=== PATIENT | female | born 1985 | race Caucasian/White ===

== ENCOUNTER 2016-12-22 07:27 | Emergency (ER) | payer OTHER ==
[2016-12-22] MEDS ORDERED: SODIUM CHLORIDE 0.9% 1,000 ML IV STA (07:35)
[2016-12-22] MEDS ORDERED: SODIUM CHLORIDE 0.9% 500 ML IV STA (07:35)
--- NOTE | 2016-12-22 07:42 | ED ---
Syncope HPI <Arturo Jeong - Last Filed: 12/22/16 09:09> - General Source: patient, RN notes reviewed Mode of arrival: EMS Limitations: no limitations - History of Present Illness MD Complaint: loss of consciousness, other <Javi Tracy - Last Filed: 12/22/16 10:37> - General Chief Complaint: Syncope Stated Complaint: Syncope Time Seen by Provider: 12/22/16 07:27 - History of Present Illness Initial Comments: This is a 31-year-old female with a benign past history states that she wasn't feeling well started around 3:00 this morning she found her partner on the bathroom floor or she's been sick throughout the night she felt woozy passed out hit the vanity with left-sided of her face and head sheet have a brief episode of loss of consciousness got up and then passed out again for brief period time. She was brought in by EMS. She did have a cervical collar on no backboard was used. She complains of left facial pain no neck pain no loss of function to her upper or lower extremities. She's never had anything like this before she denied any palpitations she herself had no nausea vomiting diarrhea shortness of breath or other symptoms prior to this. This is never happened before. She states her last menstrual periods a week ago and she denies . Her last tetanus shot was within the last 10 years. (Javi Tracy) - Related Data Previous Rx's Medication Instructions Recorded Ibuprofen [Motrin] 800 mg PO Q6HR PRN #20 tab 12/22/16 Allergies Allergy/AdvReac Type Severity Reaction Status Date / Time No Known Allergies Allergy Verified 12/22/16 07:52 Review of Systems ROS Other: All systems not noted in ROS Statement are negative. <Arturo Jeong - Last Filed: 12/22/16 09:09> ROS Other: All systems not noted in ROS Statement are negative. <Javi Tracy - Last Filed: 12/22/16 10:37> ROS Statement: Those systems with pertinent positive or pertinent negative responses have been documented in the HPI. Past Medical History Past Medical History: No Reported History History of Any Multi-Drug Resistant Organisms: None Reported Past Surgical History: No Surgical Hx Reported Past Psychological History: No Psychological Hx Reported Smoking Status: Never smoker Past Alcohol Use History: Occasional Past Drug Use History: None Reported <Javi Tracy - Last Filed: 12/22/16 10:37> General Exam <Arturo Jeong - Last Filed: 12/22/16 09:09> Limitations: no limitations General appearance: alert, in no apparent distress Head exam: Present: normocephalic, normal inspection, other (From abrasion and a very small laceration seen to the left temporal scalp at the forehead line. No step-off or crepitation no bleeding no formed by seen. It appears be approximately 3-4 mm in length) Eye exam: Present: normal appearance, PERRL, EOMI. Absent: scleral icterus, conjunctival injection, periorbital swelling ENT exam: Present: normal exam, mucous membranes moist Neck exam: Present: normal inspection. Absent: tenderness, meningismus, lymphadenopathy Respiratory exam: Present: normal lung sounds bilaterally. Absent: respiratory distress, wheezes, rales, rhonchi, stridor Cardiovascular Exam: Present: regular rate, normal rhythm, normal heart sounds. Absent: systolic murmur, diastolic murmur, rubs, gallop, clicks GI/Abdominal exam: Present: soft, normal bowel sounds. Absent: distended, tenderness, guarding, rebound, rigid Extremities exam: Present: normal inspection, full ROM, normal capillary refill. Absent: tenderness, pedal edema, joint swelling, calf tenderness Back exam: Present: normal inspection Neurological exam: Present: alert, oriented X3, CN II-XII intact Psychiatric exam: Present: normal affect, normal mood Skin exam: Present: warm, dry, normal color. Absent: rash <Javi Tracy - Last Filed: 12/22/16 10:37> - General Exam Comments Initial Comments: This is a well-developed well-nourished awake alert oriented 3 female she does demonstrate a Ideal Coma Scale of 15 (Javi Tracy) Course <Arturo Jeong - Last Filed: 12/22/16 09:09> <Javi Tracy - Last Filed: 12/22/16 10:37> Vital Signs 12/22/16 12/22/16 07:28 10:06 Temperature 98.5 F Pulse Rate 57 L 79 Respiratory 18 18 Rate Blood Pressure 122/81 128/78 O2 Sat by Pulse 97 98 Oximetry - Reevaluation(s) Reevaluation #1: 12/22/16 08:42 I did remove the patient's cervical collar and C-spine was cleared by CAT scan. Reexamination of the wound reveals approximately half centimeter long wound will require some repair. The question of carbon monoxide was raised as the other occupant of the swelling had nausea vomiting. This will be evaluated ( Javi Tracy) EKG Findings - EKG Results: EKG: interpreted by LESLIE HENDRIX, sinus rhythm, normal axis, normal QRS, normal ST/ T, no acute changes (Sinus rhythm rate of 62. Interval 164 QRS duration 84 daily since QTC of 420/426 this appears be a normal EKG) <Javi Tracy - Last Filed: 12/22/16 10:37> Procedures <Arturo Jeong - Last Filed: 12/22/16 09:09> <Javi Tracy - Last Filed: 12/22/16 10:37> - Procedures Initial comment: 1 cm linear laceration to the left side of the forehead. No active bleeding. The skin was anesthetized with 1% lidocaine. The laceration was then cleansed with Betadine and irrigated with normal saline. The wound was inspected, and there was no evidence of injury to deep structures. No foreign body was noted in the wound. A total of 2 skin sutures were placed utilizing 6-0 nylon. (Arturo Jeong) Medical Decision Making - Lab Data Result diagrams: 12/22/16 07:52 12/22/16 07:52 <Arturo Jeong - Last Filed: 12/22/16 09:09> - Lab Data Result diagrams: 12/22/16 07:52 12/22/16 07:52 - Radiology Data Radiology results: report reviewed (I did review the imaging studies and report no acute findings.), image reviewed <Javi Tracy - Last Filed: 12/22/16 10:37> - Medical Decision Making I did discuss the findings the patient family members the patient's lab work is essentially within normal limits except for the leukocytosis is likely reactive. CT is negative the repeat laceration repaired by my physician dental hygiene administrative assistant. Patient is a satisfactory condition for discharge she'll be discharged with instructions increase her oral fluids ice and Motrin for pain follow-up when necessary sutures out is indicated (Javi Tracy) - Lab Data Lab Results 12/22/16 12/22/16 12/22/16 Range/Units 07:52 07:52 07:52 WBC 20.0 H (3.8-10.6) k/uL RBC 4.89 (3.80-5.40) m/uL Hgb 15.4 (11.4-16.0) gm/dL Hct 45.2 (34.0-46.0) % MCV 92.3 (80.0-100.0) fL MCH 31.5 (25.0-35.0) pg MCHC 34.1 (31.0-37.0) g/dL RDW 12.4 (11.5-15.5) % Plt Count 289 (150-450) k/uL Neutrophils % 86 % Lymphocytes % 10 % Monocytes % 2 % Eosinophils % 1 % Basophils % 0 % Neutrophils # 17.1 H (1.3-7.7) k/uL Lymphocytes # 2.1 (1.0-4.8) k/uL Monocytes # 0.3 (0-1.0) k/uL Eosinophils # 0.3 (0-0.7) k/uL Basophils # 0.1 (0-0.2) k/uL PT (9.0-12.0) sec INR (<1.1) APTT (22.0-30.0) sec Carbon Monoxide, Quant (<10.0) % Sodium 141 (137-145) mmol/L Potassium 4.5 (3.5-5.1) mmol/L Chloride 107 (98-107) mmol/L Carbon Dioxide 22 (22-30) mmol/L Anion Gap 12 mmol/L BUN 19 H (7-17) mg/dL Creatinine 0.66 (0.52-1.04) mg/dL Est GFR (MDRD) Af Amer >60 (>60 ml/min/1.73 sqM) Est GFR (MDRD) Non-Af >60 (>60 ml/min/1.73 sqM) Glucose 103 H (74-99) mg/dL Calcium 9.3 (8.4-10.2) mg/dL Magnesium 1.9 (1.6-2.3) mg/dL Total Bilirubin 0.8 (0.2-1.3) mg/dL AST 22 (14-36) U/L ALT 27 (9-52) U/L Alkaline Phosphatase 89 (38-126) U/L Total Creatine Kinase 55 (30-135) U/L CK-MB (CK-2) 0.4 (0.0-2.4) ng/mL CK-MB (CK-2) Rel Index 0.7 Troponin I <0.012 (0.000-0.034) ng/mL Total Protein 7.1 (6.3-8.2) g/dL Albumin 4.3 (3.5-5.0) g/dL Urine Color Urine Appearance (Clear) Urine pH (5.0-8.0) Ur Specific [place] (1.001-1.035) Urine Protein (Negative) Urine Glucose (UA) (Negative) Urine Ketones (Negative) Urine Blood (Negative) Urine Nitrite (Negative) Urine Bilirubin (Negative) Urine Urobilinogen (<2.0) mg/dL Ur Leukocyte Esterase (Negative) Urine HCG, Qual (Not Detectd) 12/22/16 12/22/16 12/22/16 Range/Units 09:15 09:15 09:56 WBC (3.8-10.6) k/uL RBC (3.80-5.40) m/uL Hgb (11.4-16.0) gm/dL Hct (34.0-46.0) % MCV (80.0-100.0) fL MCH (25.0-35.0) pg MCHC (31.0-37.0) g/dL RDW (11.5-15.5) % Plt Count (150-450) k/uL Neutrophils % % Lymphocytes % % Monocytes % % Eosinophils % % Basophils % % Neutrophils # (1.3-7.7) k/uL Lymphocytes # (1.0-4.8) k/uL Monocytes # (0-1.0) k/uL Eosinophils # (0-0.7) k/uL Basophils # (0-0.2) k/uL PT 10.9 (9.0-12.0) sec INR 1.1 (<1.1) APTT 23.9 (22.0-30.0) sec Carbon Monoxide, Quant 1.2 (<10.0) % Sodium (137-145) mmol/L Potassium (3.5-5.1) mmol/L Chloride (98-107) mmol/L Carbon Dioxide (22-30) mmol/L Anion Gap mmol/L BUN (7-17) mg/dL Creatinine (0.52-1.04) mg/dL Est GFR (MDRD) Af Amer (>60 ml/min/1.73 sqM) Est GFR (MDRD) Non-Af (>60 ml/min/1.73 sqM) Glucose (74-99) mg/dL Calcium (8.4-10.2) mg/dL Magnesium (1.6-2.3) mg/dL Total Bilirubin (0.2-1.3) mg/dL AST (14-36) U/L ALT (9-52) U/L Alkaline Phosphatase (38-126) U/L Total Creatine Kinase (30-135) U/L CK-MB (CK-2) (0.0-2.4) ng/mL CK-MB (CK-2) Rel Index Troponin I (0.000-0.034) ng/mL Total Protein (6.3-8.2) g/dL Albumin (3.5-5.0) g/dL Urine Color Yellow Urine Appearance Clear (Clear) Urine pH 7.5 (5.0-8.0) Ur Specific [place] 1.017 (1.001-1.035) Urine Protein Negative (Negative) Urine Glucose (UA) Negative (Negative) Urine Ketones Negative (Negative) Urine Blood Negative (Negative) Urine Nitrite Negative (Negative) Urine Bilirubin Negative (Negative) Urine Urobilinogen <2.0 (<2.0) mg/dL Ur Leukocyte Esterase Negative (Negative) Urine HCG, Qual (Not Detectd) 12/22/16 Range/Units 09:56 WBC (3.8-10.6) k/uL RBC (3.80-5.40) m/uL Hgb (11.4-16.0) gm/dL Hct (34.0-46.0) % MCV (80.0-100.0) fL MCH (25.0-35.0) pg MCHC (31.0-37.0) g/dL RDW (11.5-15.5) % Plt Count (150-450) k/uL Neutrophils % % Lymphocytes % % Monocytes % % Eosinophils % % Basophils % % Neutrophils # (1.3-7.7) k/uL Lymphocytes # (1.0-4.8) k/uL Monocytes # (0-1.0) k/uL Eosinophils # (0-0.7) k/uL Basophils # (0-0.2) k/uL PT (9.0-12.0) sec INR (<1.1) APTT (22.0-30.0) sec Carbon Monoxide, Quant (<10.0) % Sodium (137-145) mmol/L Potassium (3.5-5.1) mmol/L Chloride (98-107) mmol/L Carbon Dioxide (22-30) mmol/L Anion Gap mmol/L BUN (7-17) mg/dL Creatinine (0.52-1.04) mg/dL Est GFR (MDRD) Af Amer (>60 ml/min/1.73 sqM) Est GFR (MDRD) Non-Af (>60 ml/min/1.73 sqM) Glucose (74-99) mg/dL Calcium (8.4-10.2) mg/dL Magnesium (1.6-2.3) mg/dL Total Bilirubin (0.2-1.3) mg/dL AST (14-36) U/L ALT (9-52) U/L Alkaline Phosphatase (38-126) U/L Total Creatine Kinase (30-135) U/L CK-MB (CK-2) (0.0-2.4) ng/mL CK-MB (CK-2) Rel Index Troponin I (0.000-0.034) ng/mL Total Protein (6.3-8.2) g/dL Albumin (3.5-5.0) g/dL Urine Color Urine Appearance (Clear) Urine pH (5.0-8.0) Ur Specific [place] (1.001-1.035) Urine Protein (Negative) Urine Glucose (UA) (Negative) Urine Ketones (Negative) Urine Blood (Negative) Urine Nitrite (Negative) Urine Bilirubin (Negative) Urine Urobilinogen (<2.0) mg/dL Ur Leukocyte Esterase (Negative) Urine HCG, Qual Not Detected (Not Detectd) Disposition <Arturo Jeong - Last Filed: 12/22/16 09:09> <Javi Tracy - Last Filed: 12/22/16 10:37> Clinical Impression: Vasovagal syncope, Dehydration, Scalp laceration, Concussion, Leukocytosis Disposition: HOME SELF-CARE Condition: Good Instructions: Concussion (ED), Laceration (ED), Syncope (ED), Dehydration (ED) Prescriptions: Ibuprofen [Motrin] 800 mg PO Q6HR PRN #20 tab PRN Reason: Pain
[2016-12-22 08:07] LABS: Basophils # (A) 0.1 k/uL (0-0.2); Basophils % (A) 0 %; CH 31.5; CHCM 34.2; Eosinophils # (A) 0.3 k/uL (0-0.7); Eosinophils % (A) 1 %; HCT 45.2 % (34.0-46.0); HGB 15.4 gm/dL (11.4-16.0); Luc # (Auto) 0.15; Luc % (Auto) 1; Lymphocytes # (A) 2.1 k/uL (1.0-4.8); Lymphocytes % (A) 10 %; MCH 31.5 pg (25.0-35.0); MCHC 34.1 g/dL (31.0-37.0); MCV 92.3 fL (80.0-100.0); Mean Platelet Volume 7.3; Monocytes # (A) 0.3 k/uL (0-1.0); Monocytes % (A) 2 %; Neutrophils # (A) 17.1 k/uL (1.3-7.7); Neutrophils % (A) 86 %; RBC 4.89 m/uL (3.80-5.40); RDW 12.4 % (11.5-15.5)
[2016-12-22 08:16] LABS: ALT 27 U/L (9-52); AST 22 U/L (14-36); Alkaline Phosphatase 89 U/L (38-126); Anion Gap 12 mmol/L; Blood Urea Nitrogen 19 mg/dL (7-17); Calcium 9.3 mg/dL (8.4-10.2); Carbon Dioxide 22 mmol/L (22-30); Chloride 107 mmol/L (98-107); Glucose 103 mg/dL (74-99); Magnesium 1.9 mg/dL (1.6-2.3); Non-African American GFR(MDRD) >60 (>60 ml/min/1.73 sqM); Potassium 4.5 mmol/L (3.5-5.1); Sodium 141 mmol/L (137-145); Total Bilirubin 0.8 mg/dL (0.2-1.3); Total Protein 7.1 g/dL (6.3-8.2)
--- NOTE | 2016-12-22 08:28 | CT ---
EXAMINATION TYPE: CT brain ildefonsoine wo con DATE OF EXAM: 12/22/2016 8:18 AM COMPARISON: NONE HISTORY: Syncope CT DLP: 1453.8 mGycm, Automated exposure control for dose reduction was used. CONTRAST: None CT of the brain is performed utilizing 3 mm thick sections through the posterior fossa and 3 mm thick sections through the remaining calvarium. Study is performed within 24 hours of arrival to the hospital. No abnormal hyperdensity is present to suggest an acute intracranial hemorrhage. No mass lesion is evident. No acute infarcts are evident. Ventricles and sulci are appropriate for the patient age. Paranasal sinuses and mastoid air cells within the [id number] are clear. IMPRESSIONS: 1. Normal CT brain. CT cervical spine. COMPARISON: None CT of the cervical spine is performed in the axial plane at 2 mm thick sections. Reconstructed image s in the coronal, and sagittal plane are reviewed on the computer. No acute fractures are evident. Vertebral body alignment is normal. Disc heights are preserved. Vertebral body heights are preserved. No spinal canal stenosis is evident. No neural foraminal stenosis is evident. IMPRESSIONS: 1. Normal CT cervical spine.
[2016-12-22 08:36] LABS: Creatine Kinase 55 U/L (30-135)
[2016-12-22] MEDS ORDERED: IBUPROFEN 800 MG TAB PO STA (08:41)
[2016-12-22 08:48] LABS: Creatine Kinase MB 0.4 ng/mL (0.0-2.4); Troponin I <0.012 ng/mL (0.000-0.034)
--- NOTE | 2016-12-22 09:51 | XR ---
EXAMINATION TYPE: XR chest 2V DATE OF EXAM: 12/22/2016 9:48 AM COMPARISON: NONE TECHNIQUE: PA and lateral views submitted. HISTORY: Syncope FINDINGS: The lungs are clear and there is no pneumothorax, pleural effusion, or focal pneumonia. IMPRESSION: 1. No acute process.
[2016-12-22 09:52] LABS: INR 1.1 (<1.1); Partial Thromboplastin Time 23.9 sec (22.0-30.0); Prothrombin Time 10.9 sec (9.0-12.0)
[2016-12-22 10:14] LABS: Appearance,Urine Clear (Clear); Bilirubin,Urine Negative (Negative); Glucose,Urine (UA) Negative (Negative); Ketones,Urine Negative (Negative); Leukocyte Esterase,Urine Negative (Negative); Nitrite,Urine Negative (Negative); PH, Urine 7.5 (5.0-8.0); Protein,Urine Negative (Negative); Specific Gravity,Urine 1.017 (1.001-1.035); UA Billing (MACRO vs. MICRO) CHEM; Urobilinogen,Urine <2.0 mg/dL (<2.0)
[2016-12-22 10:57] VITALS: BP 114/60; PULSE 66; RESP 16; TEMP 98
== END 2016-12-22 10:56 | disposition home or self-care (01) ==
LOC: EC 07:27
DX: S06.0X1A Concussion with loss of consciousness of 30 minutes or less, initial encounter (principal); S01.81XA Laceration without foreign body of other part of head, initial encounter; R55 Syncope and collapse; E86.0 Dehydration; D72.829 Elevated white blood cell count, unspecified; X58.XXXA Exposure to other specified factors, initial encounter; Y92.091 Bathroom in other non-institutional residence as the place of occurrence of the external cause
CPT/HCPCS: 12011; 36415; 70450; 71020; 72125; 80053; 81003; 81025; 82375; 82550; 82553; 83735; 84484; 85025; 85610; 85730; 93005; 99285

== ENCOUNTER → 2016-12-27 | Outpatient (CLI) | payer OTHER | END | disposition home or self-care (01) | LOC: RADECHMAIN 12:55 | PROVIDERS: ATTEND Family Medicine | DX: I47.1 Supraventricular tachycardia (principal) | CPT/HCPCS: 93225; 93226 ==

== ENCOUNTER 2017-08-30 06:39 | Emergency (ER) | payer OTHER ==
[2017-08-30] MEDS ORDERED: SODIUM CHLORIDE 0.9% 1,000 ML IV STA (07:21)
[2017-08-30] MEDS ORDERED: KETOROLAC 30 MG/ML 1 ML VIAL IVP STA (07:23)
--- NOTE | 2017-08-30 07:40 | ED ---
General Adult HPI - General Chief complaint: Dizziness Stated complaint: dizziness Time Seen by Provider: 08/30/17 07:03 Source: patient, RN notes reviewed Mode of arrival: ambulatory Limitations: no limitations - History of Present Illness Initial comments: 32-year-old female with no significant past medical history presents for evaluation of lightheadedness. Patient states that she woke this morning, felt very lightheaded like she's got pass out, sat down and symptoms resolved. She then went in the shower and began to feel somewhat again. She is also had a headache. Denies thunderclap or sudden onset headache. Frontal in nature, typical of her normal headaches. She also complains of a cough for the past 3 weeks. 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 Denies chest pain. Denies shortness of breath. Denies abdominal pain nausea vomiting. Denies dysuria. Patient denies monie fever but states she's had chills. - Related Data Home Medications Medication Instructions Recorded Confirmed Citalopram Hydrobromide [CeleXA] 20 mg PO DAILY 08/30/17 08/30/17 Allergies Allergy/AdvReac Type Severity Reaction Status Date / Time No Known Allergies Allergy Verified 08/30/17 08:55 Review of Systems ROS Statement: Those systems with pertinent positive or pertinent negative responses have been documented in the HPI. ROS Other: All systems not noted in ROS Statement are negative. Past Medical History Past Medical History: No Reported History History of Any Multi-Drug Resistant Organisms: None Reported Past Surgical History: No Surgical Hx Reported Past Psychological History: Depression Smoking Status: Never smoker Past Alcohol Use History: Occasional Past Drug Use History: None Reported General Exam Limitations: no limitations General appearance: alert, in no apparent distress Head exam: Present: atraumatic, normocephalic Eye exam: Present: normal appearance, PERRL ENT exam: Present: normal exam, normal oropharynx, mucous membranes moist Neck exam: Present: normal inspection, full ROM. Absent: tenderness, meningismus Respiratory exam: Present: normal lung sounds bilaterally. Absent: respiratory distress, wheezes Cardiovascular Exam: Present: regular rate, normal rhythm GI/Abdominal exam: Present: soft. Absent: distended, tenderness Extremities exam: Present: normal inspection, normal capillary refill. Absent: pedal edema Neurological exam: Present: alert, oriented X3, CN II-XII intact. Absent: motor sensory deficit Psychiatric exam: Present: normal affect, normal mood Skin exam: Present: warm, dry, intact. Absent: cyanosis, diaphoretic, erythema Course Vital Signs 08/30/17 08/30/17 06:55 08:54 Temperature 98.9 F Pulse Rate 59 L 75 Respiratory 18 16 Rate Blood Pressure 122/61 126/57 O2 Sat by Pulse 96 98 Oximetry - Reevaluation(s) Reevaluation #1: 08/30/17 09:16 I reevaluation, vital signs remained stable, patient feels better. EKG Findings - EKG Comments: EKG Findings:: EKG shows normal sinus rhythm, ventricular rate 60, NV 166, castration 82, QTC 422, no signs of arrhythmia or ischemia Medical Decision Making - Medical Decision Making 32-year-old female presenting for evaluation of lightheadedness, chills, and persistent cough. Patient is well-appearing on exam, vital signs are stable. EKG shows no signs of arrhythmia or ischemia. Workup including CBC is remarkable for elevated white blood cell count at 20.8 which is predominantly neutrophils. Patient is informed of this, she had an elevated white blood cell count on previous ER visit 8 months prior. These are the only 2 values available for comparison. She is informed of this abnormal lab and will follow- up with her primary care physician regarding leukocytosis. Otherwise CBC is unremarkable. Lites within normal limits, lactic acid 1.4 which is normal, urinalysis is negative for infection, influenza is negative. Chest x-ray shows no focal pneumonia or acute findings. Patient will follow-up with her primary care physician, return to the emergency department with worsening symptoms. Regarding patient's headache, she is encouraged to inform her primary care physician of this headache and may require neurology evaluation at some point if headache persists. Symptoms likely related to viral syndrome. - Lab Data Result diagrams: 08/30/17 08:14 08/30/17 08:14 Lab Results 08/30/17 08/30/17 08/30/17 Range/Units 08:14 08:14 08:14 WBC 20.8 H (3.8-10.6) k/uL RBC 4.61 (3.80-5.40) m/uL Hgb 14.5 (11.4-16.0) gm/dL Hct 42.3 (34.0-46.0) % MCV 91.7 (80.0-100.0) fL MCH 31.3 (25.0-35.0) pg MCHC 34.2 (31.0-37.0) g/dL RDW 11.8 (11.5-15.5) % Plt Count 236 (150-450) k/uL Neutrophils % 92 % Lymphocytes % 4 % Monocytes % 2 % Eosinophils % 1 % Basophils % 0 % Neutrophils # 19.1 H (1.3-7.7) k/uL Lymphocytes # 0.9 L (1.0-4.8) k/uL Monocytes # 0.4 (0-1.0) k/uL Eosinophils # 0.3 (0-0.7) k/uL Basophils # 0.0 (0-0.2) k/uL Sodium 137 (137-145) mmol/L Potassium 4.3 (3.5-5.1) mmol/L Chloride 106 (98-107) mmol/L Carbon Dioxide 24 (22-30) mmol/L Anion Gap 7 mmol/L BUN 12 (7-17) mg/dL Creatinine 0.65 (0.52-1.04) mg/dL Est GFR (MDRD) Af Amer >60 (>60 ml/min/1.73 sqM) Est GFR (MDRD) Non-Af >60 (>60 ml/min/1.73 sqM) Glucose 89 (74-99) mg/dL Plasma Lactic Acid Josr 1.4 (0.7-2.0) mmol/L Calcium 9.2 (8.4-10.2) mg/dL Total Bilirubin 0.6 (0.2-1.3) mg/dL AST 23 (14-36) U/L ALT 30 (9-52) U/L Alkaline Phosphatase 88 (38-126) U/L Total Protein 6.7 (6.3-8.2) g/dL Albumin 3.9 (3.5-5.0) g/dL Urine Color Urine Appearance (Clear) Urine pH (5.0-8.0) Ur Specific [place] (1.001-1.035) Urine Protein (Negative) Urine Glucose (UA) (Negative) Urine Ketones (Negative) Urine Blood (Negative) Urine Nitrite (Negative) Urine Bilirubin (Negative) Urine Urobilinogen (<2.0) mg/dL Ur Leukocyte Esterase (Negative) Urine HCG, Qual (Not Detectd) Influenza Type A RNA (Not Detectd) Influenza Type B (PCR) (Not Detectd) 08/30/17 08/30/17 08/30/17 Range/Units 08:14 08:52 08:52 WBC (3.8-10.6) k/uL RBC (3.80-5.40) m/uL Hgb (11.4-16.0) gm/dL Hct (34.0-46.0) % MCV (80.0-100.0) fL MCH (25.0-35.0) pg MCHC (31.0-37.0) g/dL RDW (11.5-15.5) % Plt Count (150-450) k/uL Neutrophils % % Lymphocytes % % Monocytes % % Eosinophils % % Basophils % % Neutrophils # (1.3-7.7) k/uL Lymphocytes # (1.0-4.8) k/uL Monocytes # (0-1.0) k/uL Eosinophils # (0-0.7) k/uL Basophils # (0-0.2) k/uL Sodium (137-145) mmol/L Potassium (3.5-5.1) mmol/L Chloride (98-107) mmol/L Carbon Dioxide (22-30) mmol/L Anion Gap mmol/L BUN (7-17) mg/dL Creatinine (0.52-1.04) mg/dL Est GFR (MDRD) Af Amer (>60 ml/min/1.73 sqM) Est GFR (MDRD) Non-Af (>60 ml/min/1.73 sqM) Glucose (74-99) mg/dL Plasma Lactic Acid [place] (0.7-2.0) mmol/L Calcium (8.4-10.2) mg/dL Total Bilirubin (0.2-1.3) mg/dL AST (14-36) U/L ALT (9-52) U/L Alkaline Phosphatase (38-126) U/L Total Protein (6.3-8.2) g/dL Albumin (3.5-5.0) g/dL Urine Color Yellow Urine Appearance Clear (Clear) Urine pH 7.0 (5.0-8.0) Ur Specific [place] 1.011 (1.001-1.035) Urine Protein Negative (Negative) Urine Glucose (UA) Negative (Negative) Urine Ketones Negative (Negative) Urine Blood Negative (Negative) Urine Nitrite Negative (Negative) Urine Bilirubin Negative (Negative) Urine Urobilinogen <2.0 (<2.0) mg/dL Ur Leukocyte Esterase Negative (Negative) Urine HCG, Qual Not Detected (Not Detectd) Influenza Type A RNA Not Detected (Not Detectd) Influenza Type B (PCR) Not Detected (Not Detectd) Disposition Clinical Impression: Viral syndrome, Dehydration Disposition: HOME SELF-CARE Condition: Good Instructions: Viral Syndrome (ED), Leukocytosis (ED), Dehydration (ED) Referrals: Medhat Nettles III, MD [Primary Care Provider] - 1-2 days Time of Disposition: 09:20
--- NOTE | 2017-08-30 08:10 | XR ---
EXAMINATION TYPE: XR chest 2V DATE OF EXAM: 08/30/2017 COMPARISON: Chest x-ray December 22, 2016 HISTORY: Syncope and weakness TECHNIQUE: Frontal and lateral views of the chest are obtained. FINDINGS: Somewhat low lung volumes are present. There is no focal air space opacity, pleural effusio n, or pneumothorax seen. The cardiac silhouette size is within normal limits. The osseous structur es are intact. IMPRESSION: No acute cardiopulmonary process. No significant change from prior.
[2017-08-30 08:36] LABS: Basophils % (A) 0 %; CH 32.1; CHCM 35.1; Eosinophils # (A) 0.3 k/uL (0-0.7); Eosinophils % (A) 1 %; HCT 42.3 % (34.0-46.0); HDW 2.37; HGB 14.5 gm/dL (11.4-16.0); Luc # (Auto) 0.07; Luc % (Auto) 0; Lymphocytes # (A) 0.9 k/uL (1.0-4.8); Lymphocytes % (A) 4 %; MCH 31.3 pg (25.0-35.0); MCHC 34.2 g/dL (31.0-37.0); MCV 91.7 fL (80.0-100.0); Mean Platelet Volume 7.2; Monocytes # (A) 0.4 k/uL (0-1.0); Monocytes % (A) 2 %; Neutrophils # (A) 19.1 k/uL (1.3-7.7); Neutrophils % (A) 92 %; RBC 4.61 m/uL (3.80-5.40); RDW 11.8 % (11.5-15.5); WBC 20.8 k/uL (3.8-10.6); WBC (Perox) 20.36
[2017-08-30 08:43] LABS: ALT 30 U/L (9-52); AST 23 U/L (14-36); Alkaline Phosphatase 88 U/L (38-126); Anion Gap 7 mmol/L; Blood Urea Nitrogen 12 mg/dL (7-17); Calcium 9.2 mg/dL (8.4-10.2); Carbon Dioxide 24 mmol/L (22-30); Chloride 106 mmol/L (98-107); Glucose 89 mg/dL (74-99); Non-African American GFR(MDRD) >60 (>60 ml/min/1.73 sqM); Potassium 4.3 mmol/L (3.5-5.1); Sodium 137 mmol/L (137-145); Total Bilirubin 0.6 mg/dL (0.2-1.3); Total Protein 6.7 g/dL (6.3-8.2)
[2017-08-30 08:55] VITALS: BP 126/57; PULSE 75; RESP 16
[2017-08-30 09:00] LABS: Appearance,Urine Clear (Clear); Bilirubin,Urine Negative (Negative); Glucose,Urine (UA) Negative (Negative); Ketones,Urine Negative (Negative); Leukocyte Esterase,Urine Negative (Negative); Nitrite,Urine Negative (Negative); Protein,Urine Negative (Negative); Specific Gravity,Urine 1.011 (1.001-1.035); UA Billing (MACRO vs. MICRO) CHEM; Urobilinogen,Urine <2.0 mg/dL (<2.0)
[2017-08-30 09:35] VITALS: TEMP 99
== END 2017-08-30 09:35 | disposition home or self-care (01) ==
LOC: EC 06:39
DX: E86.0 Dehydration (principal); B34.9 Viral infection, unspecified; F32.9 Major depressive disorder, single episode, unspecified; Z79.899 Other long term (current) drug therapy
CPT/HCPCS: 99284; 96374; 36415; 93005; 80053; 83605; 85025; 81003; 81025; 87502; 71020; J1885

== ENCOUNTER → 2017-09-22 | Outpatient (CLI) | payer OTHER ==
[2017-09-23 07:06] LABS: Angiotensin-1 Converting Enz. 44 U/L (8-52)
[2017-09-25 16:59] LABS: Estrogens Total 207 pg/mL
== END | disposition home or self-care (01) ==
LOC: LABWHC1 10:40
PROVIDERS: ATTEND Internal Medicine Infectious Disease
DX: L30.9 Dermatitis, unspecified (principal)
CPT/HCPCS: 36415; 82164; 82672; 84403; 84443; 85652; 86038; 86780

== ENCOUNTER 2017-11-17 13:37 | Emergency (ER) | payer SELFPAY ==
[2017-11-17 13:51] VITALS: BP 135/93; PULSE 76; RESP 18; TEMP 97.6
--- NOTE | 2017-11-17 14:15 | ED ---
General Adult HPI - General Chief complaint: Upper Respiratory Infection Stated complaint: Cough Time Seen by Provider: 11/17/17 13:47 Source: patient, RN notes reviewed Mode of arrival: ambulatory Limitations: no limitations - History of Present Illness Initial comments: 32-year-old female presents for cough and wheezing. She states she's been sick for the last few days. She does not smoke denies any history of asthma. She denies any nausea or vomiting. Family members have been diagnosed with influenza A. 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 She denies any other symptoms at this time.Patient denies any recent fever, chills, chest pain, back pain, abdominal pain, nausea vomiting, numbness or tingling, dysuria or hematuria, constipation or diarrhea, headaches or visual changes, or any other current symptoms. - Related Data Home Medications Medication Instructions Recorded Confirmed Citalopram Hydrobromide [CeleXA] 20 mg PO DAILY 08/30/17 08/30/17 Previous Rx's Medication Instructions Recorded Albuterol Inhaler [Ventolin Hfa 1 - 2 puff INHALATION Q4-6H PRN #1 11/17/17 Inhaler] inhaler predniSONE 50 mg PO DAILY #5 tab 11/17/17 Allergies Allergy/AdvReac Type Severity Reaction Status Date / Time No Known Allergies Allergy Verified 11/17/17 13:49 Review of Systems ROS Statement: Those systems with pertinent positive or pertinent negative responses have been documented in the HPI. ROS Other: All systems not noted in ROS Statement are negative. Past Medical History Past Medical History: No Reported History History of Any Multi-Drug Resistant Organisms: None Reported Past Surgical History: No Surgical Hx Reported Past Psychological History: Depression Smoking Status: Never smoker Past Alcohol Use History: Occasional Past Drug Use History: None Reported General Exam - General Exam Comments Initial Comments: General exam: Alert, active, comfortable in no apparent distress Head: Normocephalic Eyes: Normal reaction of pupils, equal size, normal range of extraocular motion Ears: normal external ear canals, pink tympanic membranes with normal cone of light Nose: clear with pink turbinates Throat: no erythema or exudates with normal sized tonsils Neck: no masses, no nuchal rigidity Chest: no chest wall deformity Lungs: equal air entry with no crackles or wheeze CVS: S1 and S2 normal with no audible mumurs, regular rhythm Abdomen: no hepatosplenomegaly, normal bowel sounds, no guarding or rigidity Spine: no scoliosis or deformity Skin: no rashes Neurological: No focal deficits, tone is normal in all 4 extremities Limitations: no limitations Course Vital Signs 11/17/17 13:49 Temperature 97.6 F Pulse Rate 76 Respiratory 18 Rate Blood Pressure 135/93 O2 Sat by Pulse 96 Oximetry Medical Decision Making - Medical Decision Making 32-year-old female presents with chief complaint of cough. At this time patient x-rays negative for acute pneumonia and patient negative for influenza. This time we discussed likely acute bronchitis. We will start her on an inhaler and steroids for home. We discussed follow-up return parameters all questions. Patient family stated they understood this plan. They will be discharged. - Radiology Data Radiology results: report reviewed, image reviewed Disposition Clinical Impression: Acute bronchitis Disposition: HOME SELF-CARE Condition: Stable Instructions: Acute Bronchitis (ED) Additional Instructions: Please use medication as discussed. Please follow up with family doctor if symptoms have not improved over the next two days. Please return to the emergency room if your symptoms increase or worsen or for any other concerns. Prescriptions: Albuterol Inhaler [Ventolin Hfa Inhaler] 1 - 2 puff INHALATION Q4-6H PRN #1 inhaler PRN Reason: Cough predniSONE 50 mg PO DAILY #5 tab Referrals: Medhat Nettles III, MD [Primary Care Provider] - 1-2 days Time of Disposition: 15:27
--- NOTE | 2017-11-17 14:39 | XR ---
EXAMINATION TYPE: XR chest 2V DATE OF EXAM: 11/17/2017 COMPARISON: Prior chest 08/30/2017 HISTORY: Cough TECHNIQUE: Frontal and lateral views of the chest are obtained. FINDINGS: There is no focal air space opacity, pleural effusion, or pneumothorax seen. The cardiac silhouette size is within normal limits. There is a spinal curvature. Bronchial wall thickening is n oted. The osseous structures are intact. IMPRESSION: Correlate for bronchitis, reactive airways disease, follow-up as indicated.
== END 2017-11-17 15:36 | disposition home or self-care (01) ==
LOC: EC 13:37
DX: J20.9 Acute bronchitis, unspecified (principal); F32.9 Major depressive disorder, single episode, unspecified; Z79.899 Other long term (current) drug therapy
CPT/HCPCS: 71046; 87502; 99283

== ENCOUNTER → 2017-12-27 | Outpatient (CLI) | payer BC ==
--- NOTE | 2017-12-27 14:41 | XR ---
Left wrist HISTORY: Pain 3 views of the left wrist Bone mineralization, joint spaces and alignment are maintained. No fracture or dislocation. IMPRESSION: No significant abnormalities evident, wrist MRI may be of benefit
--- NOTE | 2017-12-27 16:05 | US ---
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 GLAND SIZE: Right Lobe: 4.3 x 1.3 x1.7 cm Overall Parenchyma: heterogenous Left Lobe: 4.0 x 1.0 x 1.2 cm Overall Parenchyma: heterogeneous Isthmus Thickness: 0.3 cm NODULES RIGHT: # of nodules measured on right: 0 LEFT: # of nodules measured on left: 0 ISTHMUS: # of nodules measured in the isthmus: 2 1. 0.4 X 0.2 x 0.4 cm hypoechoic solid nodule at the mid right pole with well-defined margins; . Th is nodule is wider than tall and shows no intranodular vascularity. Prior size: 0.5 x 0.4 cm 2. 0.3 X 0.2 x 0.3 cm hypoechoic solid nodule at the mid left pole with well-defined margins; . Th is nodule is wider than tall and shows no intranodular vascularity. Prior size: 0.4 x 0.5 cm Bilateral neck scanned, no evidence of lymphadenopathy. IMPRESSION: 1. Stable Subcentimeter nodules within the isthmus of the thyroid
== END | disposition home or self-care (01) ==
LOC: RADUSWWP 13:37
PROVIDERS: ATTEND Family Medicine
DX: E04.2 Nontoxic multinodular goiter (principal); M25.532 Pain in left wrist
CPT/HCPCS: 76536

== ENCOUNTER → 2019-01-25 | Outpatient (CLI) | payer BC ==
--- NOTE | 2019-01-25 14:21 | US ---
EXAMINATION TYPE: US thyroid st tissue head/neck DATE OF EXAM: 01/25/2019 COMPARISON: NONE CLINICAL HISTORY: E04.9 Nontoxic goiter. follow up exam GLAND SIZE: Right Lobe: 4.3 x 1.3 x 1.6 cm Overall Parenchyma: homogenous Left Lobe: 4.7 x 1.3 x 1.1 cm Overall Parenchyma: homogeneous Isthmus Thickness: 0.3 cm NODULES RIGHT: # of nodules measured on right: 0 LEFT: # of nodules measured on left: 0 ISTHMUS: # of nodules measured in the isthmus: 2 1. 0.5 X 0.6 x 0.3 cm hypoechoic cystic nodule at midline isthmus with well defined margins. This nodule is wider than tall and shows intranodular vascularity. Prior size: 0.4 x 0.2 x 0.4 cm 2. 0.3 X 0.3 x 0.4 cm hypoechoic cystic nodule at midline isthmus with well defined margins. This nodule is wider than tall and shows intranodular vascularity. Prior size: 0.3 x 0.2 x 0.3 cm Bilateral neck scanned, no evidence of lymphadenopathy. IMPRESSION: Essentially stable exam
== END ==
LOC: RADUSWWP 12:16
PROVIDERS: ATTEND Family Medicine
DX: E04.9 Nontoxic goiter, unspecified (principal)
CPT/HCPCS: 76536

== ENCOUNTER → 2024-11-19 | Outpatient (CLI) | payer BC ==
--- NOTE | 2024-11-19 21:00 | MR ---
EXAMINATION TYPE: MR cervical spine wo con DATE OF EXAM: 11/19/2024 8:54 PM COMPARISON: None. CLINICAL INDICATION: Female, 39 years old with history of M54.12; PHH, Weakness/Tingling in Arms, mor e on Left side x6 months, Headaches TECHNIQUE: Multi planar, multi sequence imaging was performed utilizing: T1-weighted, T2-weighted, an d turbo inversion recovery imaging of the cervical spine. IV Contrast: mL (None, if empty) FINDINGS: Alignment: The cervical vertebral bodies have preserved heights. Alignment is within normal limits gi erwin patient positioning. Bones: Bone signal is within normal limits. No abnormal bone marrow edema on inversion recovery seque nces. Cord: The spinal cord is unremarkable with regards to their signal intensity and morphology. Discs: Intervertebral disc signal is maintained. C2-C3: No significant disc pathology. The spinal canal is patent. No neural foraminal stenosis. C3-C4: No significant disc pathology. The spinal canal is patent. No neural foraminal stenosis. C4-C5: No significant disc pathology. The spinal canal is patent. No neural foraminal stenosis. C5-C6: No significant disc pathology. The spinal canal is patent. No neural foraminal stenosis. C6-C7: No significant disc pathology. The spinal canal is patent. No neural foraminal stenosis. C7-T1: No significant disc pathology. The spinal canal is patent. No neural foraminal stenosis. Other: None. IMPRESSION: 1. No evidence for disc herniation or significant spinal canal stenosis. 2. Minimal if any disc degeneration. [facility], , 11/19/2024 8:58 PM
== END | disposition home or self-care (01) ==
LOC: RADMRIMAIN 20:40
PROVIDERS: ATTEND Family Medicine
DX: M50.10 Cervical disc disorder with radiculopathy, unspecified cervical region (principal); R20.2 Paresthesia of skin; R53.1 Weakness; R51.9 Headache, unspecified
CPT/HCPCS: 72141